=== PATIENT | male | born 1985 | race Caucasian/White ===

== ENCOUNTER 2019-10-17 15:51 | Emergency (ER) | payer BC, MEDICAID ==
[2019-10-17 16:04] VITALS: BP 139/82; PULSE 75
--- NOTE | 2019-10-17 16:04 | EDM.PDOC ---
ED HPI GENERAL MEDICAL PROBLEM - General Chief Complaint: Neuro Symptoms/Deficits Stated Complaint: DIZZY Time Seen by Provider: 10/17/19 16:04 - History of Present Illness INITIAL COMMENTS - FREE TEXT/NARRATIVE: 34-year-old male presents to the emergency room with dizziness and headache. Patient thinks that caffeine makes the dizziness worse. And headache responds favorably to ibuprofen but then it returns. Patient has not had a history of any recent head trauma or injuries. Turning his head from side to side does not make the dizziness worse change of position does not make the dizziness worse. And the dizziness is overall fairly mild. He has had a headache since 3 days ago he does not have a prior history of migraines. He had some nausea at one point but this seemed to resolve on its own without too much difficulty Headache Pain Score (Numeric/FACES): 3 - Related Data Allergies Allergy/AdvReac Type Severity Reaction Status Date / Time No Known Allergies Allergy Verified 10/17/19 16:04 Home Meds: Home Meds Citalopram Hydrobromide [Celexa] 0 mg PO DAILY 10/17/19 [History] Past Medical History - Past Health History Medical/Surgical History: Denies Medical/Surgical History Cardiovascular History: Reports: None Respiratory History: Reports: None Gastrointestinal History: Reports: None Genitourinary History: Reports: None Musculoskeletal History: Reports: None Neurological History: Reports: None Psychiatric History: Reports: Anxiety, Depression, Hallucinations Other Psychiatric History: Patient states he is addicted to alcohol Endocrine/Metabolic History: Reports: None Hematologic History: Reports: None Oncologic (Cancer) History: Reports: None - Infectious Disease History Infectious Disease History: Reports: None - Past Surgical History HEENT Surgical History: Reports: Tonsillectomy Social & Family History - Family History Family Medical History: Noncontributory - Caffeine Use Caffeine Use: Reports: None - Living Situation & Occupation Living situation: Reports: , Alone Occupation: Unemployed ED ROS GENERAL - Review of Systems Review Of Systems: See Below Constitutional: Reports: No Symptoms HEENT: Reports: No Symptoms Respiratory: Reports: No Symptoms Cardiovascular: Reports: No Symptoms Endocrine: Reports: No Symptoms GI/Abdominal: Reports: Nausea. Denies: Abdominal Pain (Is resolved), Constipation, Diarrhea, Vomiting : Reports: No Symptoms Musculoskeletal: Reports: No Symptoms Skin: Reports: No Symptoms Neurological: Reports: Dizziness, Headache ED EXAM, GENERAL - Physical Exam Exam: See Below Exam Limited By: No Limitations General Appearance: Alert, No Apparent Distress Eye Exam: Bilateral Eye: EOMI, Normal Inspection, PERRL Ears: Normal External Exam, Normal Canal, Hearing Grossly Normal, Normal TMs Nose: Normal Inspection, Normal Mucosa, No Blood Throat/Mouth: Normal Inspection, Normal Lips, Normal Teeth, Normal Gums, Normal Oropharynx, Normal Voice, No Airway Compromise Head: Atraumatic, Normocephalic Neck: Normal Inspection, Supple, Non-Tender, Full Range of Motion. No: Lymphadenopathy (L), Lymphadenopathy (R) Respiratory/Chest: No Respiratory Distress, Lungs Clear, Normal Breath Sounds Cardiovascular: Regular Rate, Rhythm, No Edema, No Murmur GI/Abdominal: Normal Bowel Sounds, Soft, Non-Tender Back Exam: Normal Inspection, Full Range of Motion. No: CVA Tenderness (L), CVA Tenderness (R) Extremities: Normal Inspection, No Pedal Edema Neurological: Alert, Oriented, Normal Cognition, Other (Nerves II through XII grossly intact all muscle groups the upper extremities are equal and appropriate bilaterally lower extremities are okay cerebellar testing is entirely within normal limits. The patient can sit there and turn his head from side to side without difficulty and not seeming to make the dizziness any worse) Psychiatric: Normal Affect, Normal Mood Skin Exam: Warm, Dry, Intact Course - Vital Signs Last Recorded V/S: Last Vital Signs Temp 37.0 C 10/17/19 16:01 Pulse 75 10/17/19 16:01 Resp 14 10/17/19 16:01 BP 139/82 10/17/19 16:01 Pulse Ox 95 10/17/19 16:01 - Orders/Labs/Meds Meds: Medications Discontinued Medications Generic Name Dose Route Start Last Admin Trade Name Freq PRN Reason Stop Dose Admin Lactated Ringer's 1,000 mls @ 999 mls/hr 10/17/19 16:12 10/17/19 16:30 Ringers, Lactated IV 10/17/19 17:12 999 mls/hr .BOLUS ONE Administration Ketorolac Tromethamine 15 mg 10/17/19 17:34 10/17/19 17:40 Toradol IVPUSH 10/17/19 17:35 15 mg ONETIME ONE Administration Ondansetron HCl 4 mg 10/17/19 16:12 10/17/19 16:26 Zofran IVPUSH 10/17/19 16:13 4 mg ONETIME ONE Administration - Re-Assessments/Exams Free Text/Narrative Re-Assessment/Exam: 10/17/19 16:19 The patient lives about [place] minutes away from here he drove himself here I would like to try him on a bolus of fluid with some Zofran and Benadryl however we will hold the Benadryl but he can take some when he gets home. If this does not resolve the patient should give strong consideration to getting a formal hearing evaluation done. 10/17/19 18:29 Give a liter of fluid and some Zofran with modest improvement this was followed up with 15 mg of Toradol IV that helped with his headache but now has had some neck pain and is unsure about the dizziness I recommend he drive home take 2 Benadryl and sleep the rest of the scenario away. Also discussed if this dizziness continues to be a problem he needs to have an audiology evaluation he is in agreement to this. Departure - Departure Time of Disposition: 18:30 Disposition: Home, Self-Care 01 Clinical Impression: Headache, Dizziness - Discharge Information Referrals: PCP,None [Primary Care Provider] - Forms: ED Department Discharge Additional Instructions: Return to the emergency room with any questions problems or worsening symptoms. Follow-up with the hospital clinic at the end of this week or first part of next week. Follow-up with 1 of the local [employer] operator for formal hearing evaluation if the dizziness does not get better. Drive home then take 2 Benadryl and take a nap, this can be the best treatment for headache. Sepsis Event Note - Focused Exam Vital Signs: Vital Signs Temp Pulse Resp BP Pulse Ox 10/17/19 16:01 37.0 C 75 14 139/82 95 Date Exam was Performed: 10/17/19 Time Exam was Performed: 18:29
[2019-10-17] MEDS ORDERED: Ondansetron 4 MG/2 ML SDV IVPUSH ONE (16:12)
[2019-10-17] MEDS ORDERED: Lactated Ringers 1,000 ML IV ONE (16:12)
[2019-10-17] MEDS ORDERED: Ketorolac 15 MG/ML SDV IVPUSH ONE (17:34)
== END 2019-10-17 18:47 | disposition home or self-care (01) ==
LOC: JD.ED 15:51
DX: R51 Headache (principal); R42 Dizziness and giddiness
CPT/HCPCS: 96361; 96374; 96375; 99283; J1885; J2405; J7120

== ENCOUNTER 2024-04-23 18:06 | Emergency (ER) | payer BC ==
[2024-04-23 18:28] VITALS: BP 146/86; PULSE 81
== END 2024-04-23 19:22 | disposition home or self-care (01) ==
LOC: JD.ED 18:06
DX: S51.812A Laceration without foreign body of left forearm, initial encounter (principal); Z79.899 Other long term (current) drug therapy; X58.XXXA Exposure to other specified factors, initial encounter
CPT/HCPCS: 12001; 99282